=== PATIENT | male | born 1975 | race Caucasian/White ===

== ENCOUNTER 2018-01-06 09:01 | Emergency (ER) | payer BC ==
--- NOTE | 2018-01-06 09:50 | ER Document Report ---
ED General - General Chief Complaint: Groin Pain Stated Complaint: POSSIBLE ABSCESS Time Seen by Provider: 01/06/18 09:32 TRAVEL OUTSIDE OF THE [place] IN LAST 30 DAYS: No - HPI Patient complains to provider of: Groin pain Notes: Patient coming in states he has a lump in his lower abdomen right above the base of the penis ongoing for approximately 2 years increasing size of the last few months did see local primary care was referred to a general surgeon for further evaluation however this point is not until January 29 patient states pain has increased patient also states there is a small red dot is now formed in the middle of the lump or mass is concerning for abscess. Denies fevers chills nausea vomiting diarrhea. Denies any trauma. - Related Data Allergies/Adverse Reactions: No Known Allergies Allergy (Verified 01/06/18 09:39) Past Medical History - Social History Smoking Status: Current Every Day Smoker Frequency of alcohol use: None Drug Abuse: Marijuana Family History: Reviewed & Not Pertinent Patient has suicidal ideation: No Patient has homicidal ideation: No Renal/ Medical History: Denies: Hx Peritoneal Dialysis Review of Systems - Review of Systems Constitutional: No symptoms reported EENT: No symptoms reported Cardiovascular: No symptoms reported Respiratory: No symptoms reported Gastrointestinal: Other - Abdominal lump Genitourinary: No symptoms reported Male Genitourinary: No symptoms reported Musculoskeletal: No symptoms reported Skin: No symptoms reported Hematologic/Lymphatic: No symptoms reported Neurological/Psychological: No symptoms reported -: Yes All other systems reviewed and negative Physical Exam - Vital signs Vitals: Temp Pulse Resp BP Pulse Ox 98.0 F 88 18 115/74 99 01/06/18 09:10 01/06/18 09:10 01/06/18 09:10 01/06/18 09:10 01/06/18 09:10 Interpretation: Normal - General General appearance: Appears well, Alert - HEENT Head: Normocephalic, Atraumatic Eyes: Normal Pupils: PERRL - Respiratory Respiratory status: No respiratory distress Chest status: Nontender Breath sounds: Normal Chest palpation: Normal - Cardiovascular Rhythm: Regular Heart sounds: Normal auscultation Murmur: No - Abdominal Inspection: Normal Distension: No distension Bowel sounds: Normal Tenderness: Nontender Organomegaly: No organomegaly Notes: Patient with a small lump approximately 4 cm x 4 cm at the base of the penis freely mobile non-tender no fluctuance. Patient does have a small pimple at the base of a hair in the center of this month. This ultrasound does not show any drainable fluid collection looks to be well encapsulated possibly lipoma. - Back Back: Normal, Nontender - Extremities General upper extremity: Normal inspection, Nontender, Normal color, Normal ROM , Normal temperature General lower extremity: Normal inspection, Nontender, Normal color, Normal ROM , Normal temperature, Normal weight bearing. No: Mya's sign - Neurological Neuro grossly intact: Yes Cognition: Normal Orientation: AAOx4 [place] Coma Scale Eye Opening: Spontaneous [place] Coma Scale Verbal: Oriented [place] Coma Scale Motor: Obeys Commands [place] Coma Scale Total: 15 Speech: Normal Motor strength normal: LUE, RUE, LLE, RLE Sensory: Normal - Psychological Associated symptoms: Normal affect, Normal mood - Skin Skin Temperature: Warm Skin Moisture: Dry Skin Color: Normal Course - Re-evaluation Re-evalutation: 01/06/18 15:10 Discussed with her general surgeon on-call agrees with follow-up in their clinic. Information was given patient was given [place] for home for pain is a states he is on Ultram this is not helping. Did evaluate the patient's narcotic database prior to prescribing [place]. Patient will be discharged home The patient presents with abdominal pain without signs of peritonitis or other life-threatening or serious etiology. The patient appears stable for discharge and has been instructed to return immediately if the symptoms worsen in any way , or in 8-12hr if not improved for re-evaluation. The patient has been instructed to return if the symptoms worsen or change in any way. - Vital Signs Vital signs: Temp Pulse Resp BP Pulse Ox 97.4 F 65 18 121/83 97 01/06/18 10:01 01/06/18 10:01 01/06/18 10:01 01/06/18 10:01 01/06/18 10:01 Discharge - Discharge Clinical Impression: suprapubic lump Disposition: HOME, SELF-CARE Instructions: Growth or Mass, Pending Workup ([facility]), Surgeon Additional Instructions: The lump in the bottom of your abdomen today was evaluated by bedside ultrasound is not consistent with an abscess formation. This could be a possible lipoma or other etiology that would need to be further evaluated by her primary care physician or the surgical clinic provided. Please call Sunday to surgical clinic. I will give you a prescription for hydrocodone. Please do not take this with your tramadol. I would recommend also taking Motrin or the Naprosyn. The small red area Associated with the lump is a small area of folliculitis or a hair infection. Continue to monitor the area he can place warm compresses on the area Return to ER for any concerns or questions. Prescriptions: Hydrocodone/Acetaminophen [Hydrocodon-Acetaminophen 5-325] 1 each PO Q6 PRN #21 tablet PRN Reason: Referrals: EDNA BAILEY MD [Primary Care Provider] - Follow up as needed
[2018-01-06 10:02] VITALS: BP 121/83
== END 2018-01-06 10:02 | disposition home or self-care (01) ==
LOC: ER 09:01
DX: R19.09 Other intra-abdominal and pelvic swelling, mass and lump (principal); R10.30 Lower abdominal pain, unspecified; F17.200 Nicotine dependence, unspecified, uncomplicated
CPT/HCPCS: 99283

== ENCOUNTER 2018-02-08 06:56 | Day surgery (SDC) | payer BC ==
[~2018-02-08 06:56] MED LIST: CEFAZOLIN 1 GM/D5W RTU 1 GM/50 ML RTUPB IV PRN; DEXAMETHASONE SOD PHOSPHATE INJ 4 MG/1 ML VIAL ONE; FENTANYL CITRATE INJ/PF 100 MCG/2 ML AMPUL ONE; LACTATED RINGERS 1000 ML IV PRN; LIDOCAINE 0.5% INJ-PF (5 MG/ML) 50 ML SDV SUBCUT PRN; LIDOCAINE 2% INJ-PF (20 MG/ML) 10 ML AMPUL ONE; MIDAZOLAM 2 MG/2 ML INJ ONE; ONDANSETRON HCL INJ/PF 4 MG/2 ML SDV ONE; PROPOFOL INJ 200 MG/20 ML VIAL IV ONE
[2018-02-08] MEDS ORDERED: LIDOCAINE 1% INJ-PF (10 MG/ML) 30 ML SDV ONE (07:14)
[2018-02-08] MEDS ORDERED: POVIDONE-IODINE 5% OPH PREP SOLN 30 ML ONE (07:14)
[2018-02-08] MEDS ORDERED: LIDOCAINE 1%/EPINEPHRINE INJ 20 ML VIAL ONE (07:15)
[2018-02-08] MEDS ORDERED: FAMOTIDINE INJ/PF 20 MG/2 ML SDV IV ONE (07:31)
[2018-02-08] MEDS ORDERED: ALBUTEROL SULFATE 0.083% NEB 2.5 MG/3 ML AMPUL NEB ONE (07:31)
[2018-02-08] MEDS ORDERED: MIDAZOLAM 2 MG/2 ML INJ ONE (07:31)
[2018-02-08] MEDS ORDERED: PROMETHAZINE HCL INJ 25 MG/1 ML VIAL IV PRN ×2 (09:03)
[2018-02-08] MEDS ORDERED: MORPHINE SULFATE 10 MG/ML INJ IV PRN (09:03)
[2018-02-08] MEDS ORDERED: OXYCODONE-ACETAMINOPHEN 5-325 MG TABLET PO PRN ×2 (09:03)
[2018-02-08] MEDS ORDERED: DIPHENHYDRAMINE HCL 50 MG/ML VIAL IV PRN (09:03)
[2018-02-08] MEDS ORDERED: FENTANYL CITRATE INJ/PF 100 MCG/2 ML AMPUL IV PRN ×3 (09:03)
[2018-02-08] MEDS ORDERED: MEPERIDINE HCL/PF INJ 25 MG/1 ML DISP.SYRIN IV PRN (09:03)
[2018-02-08] MEDS ORDERED: SUCCINYLCHOLINE CHLORIDE INJ 200 MG/10 ML VIAL ONE (09:12)
--- NOTE | 2018-02-08 09:41 | Discharge Summary ---
Discharge Summary (SDC) - Discharge Final Diagnosis: 1. Suspicious skin lesion 2. Left pubic subcutaneous mass Date of Surgery: 02/08/18 Discharge Date: 02/08/18 Condition: Good Treatment or Instructions: No heavy lifting; may remove dressings in a 48 to 72 hours. May take Tylenol Motrin as needed pain; return also surgical clinic in 1 week for suture removal and review pathology report Referrals: EDAN BAILEY MD [Primary Care Provider] - Discharge Diet: As Tolerated Discharge Activity: Activity As Tolerated Home Care Assistance: None Needed Report the Following to Your Physician Immediately: Shortness of Breath, Increase in Pain, Fever over 101 Degrees
--- NOTE | 2018-02-08 09:48 | Operative Report ---
Operative Report DATE OF SURGERY: 02/08/18 PREOPERATIVE DIAGNOSIS: 1. Suspicious nasal lesion. 2. Left pubic subcutaneous lipoma POSTOPERATIVE DIAGNOSIS: Same OPERATION: 1. Complete excision full thickness right nasal lesion. 2. Focused ultrasound of the left inguinal and pubic regions. 3. Excision of left mons cutaneous lipoma SURGEON: DAREK KING ANESTHESIA: GA TISSUE REMOVED OR ALTERED: Suspicious is a lesion; lipoma left pubic mons region COMPLICATIONS: None ESTIMATED BLOOD LOSS: Scant INTRAOPERATIVE FINDINGS: See below PROCEDURE: Patient is in the preop holding area where the right nose and left suprapubic area were marked. The patient then taken to the main operating room and general anesthesia was The right nasal skin lesion was addressed first. The head and neck were externally rotated to the left side. The right mid region was prepped and draped with Betadine. Surgical plan surgical timeout were conducted. Markings were made on the skin for a near horizontal vertical incision. The lesion was in fact excised in elliptical fashion full-thickness down to the subcutaneous tissue. The lesion which appeared clinically to be a basal cell carcinoma was approximately 3-4 mm in diameter. The skin was approximately 4 x 7 mm in diameter. It was sent to pathology for permanent analysis. The superior and inferior skin edges were elevated, the wound closed in layers with 4-0 Vicryl and 5-0 Prolene suture. Benzoin and Steri-Strips applied. The face was washed out and drapes taken down We now focused on the left inguinal and suprapubic area. Focused ultrasound with the variable frequency linear transducer was performed of the mass at the base of the mons pubic area, and towards the left side over the external inguinal ring. The findings are significant lipomatous tissue. Mass did not extend deep to Dinorah's fascia. The skin was anesthetized 1% plain lidocaine. A slightly curvilinear incision was made approximately 3-1/2 cm long over the mass. The mass was dissected out using a combination of electrocautery, blunt and hemostat dissection. Clinically appeared to be a lipoma, with fat content whitish pale, and distinct from otherwise normal subcutaneous fat. There was no evidence of tumor, blood, pus etc. The specimen was removed in a piecemeal fashion and sent to pathology for further analysis. Closed with 3-0 Vicryl benzoin Steri-Strips and bulky dressing applied. Tolerated procedure well. He was extubated and taken to recovery room stable condition.
[2018-02-08] MEDS: FENTANYL CITRATE INJ/PF 100 MCG/2 ML AMPUL ONE ×2 (09:49→09:54)
[2018-02-08 11:28] VITALS: BP 124/89
== END 2018-02-08 11:30 | disposition home or self-care (01) ==
LOC: OROUT 06:56
PROVIDERS: ATTEND Surgery
PROC: 0HBAXZZ Excision of Inguinal Skin, External Approach (ICD-10-PCS; 2018-02-08)
PROC: 0HQ1XZZ Repair Face Skin, External Approach (ICD-10-PCS; principal; 2018-02-08 08:45)
PROC: 0HB1XZZ Excision of Face Skin, External Approach (ICD-10-PCS; 2018-02-08 08:45)
DX: C44.321 Squamous cell carcinoma of skin of nose (principal); D17.1 Benign lipomatous neoplasm of skin and subcutaneous tissue of trunk; F17.210 Nicotine dependence, cigarettes, uncomplicated
CPT/HCPCS: 88304 ×2; 88305 ×2; 11640; 12051; 11400; J2250; J0690; J1100; J3010; J3490 ×3; J0330; J2405; J2704; S0028; 300